=== PATIENT | female | born 1955 | race Caucasian/White ===

== ENCOUNTER 2016-12-04 14:29 | Emergency (ER) | payer SELFPAY ==
[~2016-12-04] VITALS: Ht 154.9 cm; Wt 51.0 kg
--- NOTE | 2016-12-04 14:33 | PD ---
HPI Chief Complaint: fall Time Seen by Provider: 14:33 Travel History International Travel<30 days: No Contact w/Intl Traveler<30days: No Traveled to known affect area: No History of Present Illness HPI 61-year-old female was a chronic alcoholic fell after she has been drinking. She hit her head and was bleeding significantly. She was brought in by EMS. Patient does not remember what happened. She says she's been falling a lot lately. She appears disheveled and intoxicated but answering questions to some extent appropriately. She was slightly tachycardic upon arrival. [facility] Past Medical History Narrative Medical List of her past medical, surgical, social and family history was reviewed from the nursing note. Anxiety: Yes Depression: Yes Diminished Hearing: No Social History Alcohol Use: Yes (HEAVY DRINKER) Tobacco Use: Yes (1/2 PPD) Substance Use: No Allergies-Medications (Allergen,Severity, Reaction): Coded Allergies: No Known Allergies (Unverified , 12/04/16) Comments No known drug allergies. Reported Meds & Prescriptions Reported Meds & Active Scripts Active No Active Prescriptions or Reported Medications Narrative Medication List of her home medications reviewed from the nursing note. Review of Systems Except as stated in HPI: all other systems reviewed are Neg Physical Exam Narrative GENERAL: Intoxicated, slurred speech SKIN: Focused skin assessment warm/dry. HEAD: Large laceration on the posterior aspect of the scalp. Seems to be some active bleeding. EYES: Pupils equal and round. No scleral icterus. No injection or drainage. ENT: No nasal bleeding or discharge. Mucous membranes pink and moist. NECK: Trachea midline. No JVD. CARDIOVASCULAR: Regular rate and rhythm. No murmur appreciated. RESPIRATORY: No accessory muscle use. Clear to auscultation. Breath sounds equal bilaterally. GASTROINTESTINAL: Abdomen soft, non-tender, nondistended. Hepatic and splenic margins not palpable. MUSCULOSKELETAL: No obvious deformities. No clubbing. No cyanosis. No edema. NEUROLOGICAL: Intoxicated, slurred speech, GCS of 15. No obvious cranial nerve deficits. Motor grossly within normal limits. Slurred speech. PSYCHIATRIC: Appropriate mood and affect; insight and judgment normal. Data Data Last Documented VS Vital Signs Date Time Temp Pulse Resp B/P (MAP) Pulse Ox O2 Delivery O2 Flow Rate FiO2 12/04/16 19:40 98.6 89 18 100/53 (69) 96 12/04/16 19:39 Room Air Orders Orders Basic Metabolic Panel (Bmp) (12/04/16 14:43) Complete Blood Count With Diff (12/04/16 14:43) Prothrombin Time / Inr (Pt) (12/04/16 14:43) Act Partial Throm Time (Ptt) (12/04/16 14:43) Type And Screen (12/04/16 14:43) Alcohol (Ethanol) (12/04/16 14:43) Chest, Single Ap (12/04/16 14:43) Ct Brain W/O Iv Contrast(Rout) (12/04/16 14:43) Iv Access Insert/Monitor (12/04/16 14:43) Ecg Monitoring (12/04/16 14:43) Oximetry (12/04/16 14:43) Oxygen Administration (12/04/16 14:43) Sodium Chlor 0.9% 1000 Ml Inj (Ns 1000 M (12/04/16 14:43) Sodium Chloride 0.9% Flush (Ns Flush) (12/04/16 14:45) Drug Screen, Random Urine (12/04/16 14:43) ^ Irrigate (12/04/16 14:43) Potassium Chloride (Kcl) (12/04/16 16:30) Labs Laboratory Tests Test 12/04/16 15:20 12/04/16 16:30 White Blood Count 8.0 TH/MM3 Red Blood Count 4.28 MIL/MM3 Hemoglobin 14.4 GM/DL Hematocrit 44.0 % Mean Corpuscular Volume 102.8 FL Mean Corpuscular Hemoglobin 33.7 PG Mean Corpuscular Hemoglobin Concent 32.8 % Red Cell Distribution Width 13.2 % Platelet Count 429 TH/MM3 Mean Platelet Volume 7.0 FL Neutrophils (%) (Auto) 72.2 % Lymphocytes (%) (Auto) 18.7 % Monocytes (%) (Auto) 4.4 % Eosinophils (%) (Auto) 4.1 % Basophils (%) (Auto) 0.6 % Neutrophils # (Auto) 5.8 TH/MM3 Lymphocytes # (Auto) 1.5 TH/MM3 Monocytes # (Auto) 0.4 TH/MM3 Eosinophils # (Auto) 0.3 TH/MM3 Basophils # (Auto) 0.0 TH/MM3 CBC Comment DIFF FINAL Differential Comment Prothrombin Time 10.1 SEC Prothromb Time International Ratio 0.9 RATIO Activated Partial Thromboplast Time 26.6 SEC Blood Urea Nitrogen 4 MG/DL Creatinine 0.95 MG/DL Random Glucose 103 MG/DL Calcium Level 8.2 MG/DL Sodium Level 140 MEQ/L Potassium Level 3.4 MEQ/L Chloride Level 108 MEQ/L Carbon Dioxide Level 24.2 MEQ/L Anion Gap 8 MEQ/L Estimat Glomerular Filtration Rate 60 ML/MIN Ethyl Alcohol Level 320 MG/DL Urine Opiates Screen NEG Urine Barbiturates Screen NEG Urine Amphetamines Screen NEG Urine Benzodiazepines Screen NEG Urine Cocaine Screen NEG Urine Cannabinoids Screen NEG MDM Medical Decision Making Medical Screen Exam Complete: Yes Emergency Medical Condition: Yes Medical Record Reviewed: Yes Differential Diagnosis Intracranial bleed, skull fracture, scalp last Narrative Course 3:43 PM CBC is back and within normal limits. Awaiting for the chemistry. CT scan is back and within normal limits. I just finished stapling her scalp laceration. Please refer to my procedure note. Patient tolerated the procedure well. Patient told me that her last tetanus shot was within 5 years. Case will be signed over to the oncoming ER physician. Procedures Procedure Narrative LACERATION LOCATION: Posterior scalp LENGTH: 5 cm NUMBER OF STITCHES/ANTIONE: 11 antione REPAIR: The area of the laceration was prepped with Betadine and sterilely draped. The laceration was infiltrated with None. The wound was copiously irrigated and explored without evidence of foreign body, tendon injury or neurovascular injury. The wound was closed using antione. This was a single layer repair. A sterile dressing was applied. The patient was advised to keep the dressing clean and dry. Patient tolerated the procedure well. EKG Prior to Arrival: No Scripts No Active Prescriptions or Reported Meds Bruno Farmer MD Dec 04, 2016 14:33
[2016-12-04 14:35] VITALS: BP 104/61; PULSE 104; RESP 20; TEMP 98.9
[2016-12-04] MEDS ORDERED: SODIUM CHLOR 0.9% 1000 ML INJ 1,000 ML IV SCH (14:43)
[2016-12-04] MEDS ORDERED: SODIUM CHLORIDE 0.9% FLUSH 10 ML FLUSH IVF PRN (14:45)
--- NOTE | 2016-12-04 15:24 | RADRPT ---
EXAM DATE/TIME: 12/04/2016 15:05 [facility] COMPARISON: No previous studies available for comparison. INDICATIONS : Trauma. Fall. ETOH. RADIATION DOSE: 59.81 CTDIvol (mGy) MEDICAL HISTORY : Alcohol abuse. SURGICAL HISTORY : None. ENCOUNTER: Initial ACUITY: 1 day PAIN SCALE: 0/10 LOCATION: cranial TECHNIQUE: Multiple contiguous axial images were obtained of the head. Using automated exposure control and adj ustment of the mA and/or kV according to patient size, radiation dose was kept as low as reasonably a chievable to obtain optimal diagnostic quality images. DICOM format image data is available electro nically for review and comparison. FINDINGS: CEREBRUM: The ventricles are normal for age. No evidence of midline shift, mass lesion, hemorrhage or acute in farction. No extra-axial fluid collections are seen. POSTERIOR FOSSA: The cerebellum and brainstem are intact. The 4th ventricle is midline. The cerebellopontine angle i s unremarkable. EXTRACRANIAL: The visualized portion of the orbits is intact. SKULL: The calvaria is intact. No evidence of skull fracture. CONCLUSION: Negative for an acute process. Tru Lima MD FACR on December 04, 2016 at 15:21 Board Certified Radiologist. This report was verified electronically.
--- NOTE | 2016-12-04 15:25 | RADRPT ---
EXAM DATE/TIME: 12/04/2016 15:02 [facility] COMPARISON: No previous studies available for comparison. INDICATIONS : Trauma. Fall. MEDICAL HISTORY : Unobtainable. SURGICAL HISTORY : Unobtainable. ENCOUNTER: Initial ACUITY: 1 day PAIN SCORE: Non-responsive. LOCATION: Bilateral chest FINDINGS: A single view of the chest demonstrates the lungs to be symmetrically aerated without evidence of mas s, infiltrate or effusion. The cardiomediastinal contours are unremarkable. Osseous structures are intact. CONCLUSION: No acute disease. Tru Lima MD FACR on December 04, 2016 at 15:23 Board Certified Radiologist. This report was verified electronically.
[2016-12-04 15:35] LABS: AUTOMATED NEUTROPHIL # 5.8 TH/MM3 (1.8-7.7); BASOPHIL % 0.6 % (0.0-2.0); EOSINOPHIL # 0.3 TH/MM3 (0-0.4); EOSINOPHIL % 4.1 % (0.0-4.0); HEMO FLAGS DIFF FINAL; LYMPH % 18.7 % (9.0-44.0); LYMPHOCYTE # 1.5 TH/MM3 (1.0-4.8); MEAN CELL VOLUME 102.8 FL (80.0-100.0); MEAN CORPUSCULAR HEMOGLOBIN 33.7 PG (27.0-34.0); MEAN CORPUSCULAR HGB CONC 32.8 % (32.0-36.0); MONO % 4.4 % (0.0-8.0); NEUT % 72.2 % (16.0-70.0); PLATELET COUNT 429 TH/MM3 (150-450); RED BLOOD COUNT 4.28 MIL/MM3 (4.00-5.30); RED CELL DISTRIBUTION WIDTH 13.2 % (11.6-17.2)
[2016-12-04 15:47] LABS: POTASSIUM 3.4 MEQ/L (3.5-5.1)
[2016-12-04 15:50] LABS: BICARBONATE 24.2 MEQ/L (21.0-32.0)
[2016-12-04 16:05] VITALS: BP 104/61; PULSE 104; RESP 18; O2SAT 98
[2016-12-04 16:11] LABS: APTT (PATIENT) 26.6 SEC (24.3-30.1); INTERNATIONAL NORMALIZED RATIO 0.9 RATIO; PROTHROMBIN TIME - PATIENT 10.1 SEC (9.8-11.6)
[2016-12-04] MEDS ORDERED: POTASSIUM CHLORIDE 20 MEQ CONTROLLED RELEASE TAB PO ONE (16:30)
[2016-12-04 17:10] VITALS: BP 107/62; PULSE 94; RESP 17; O2SAT 97
--- NOTE | 2016-12-04 19:33 | PD ---
Physical Exam Date Seen by Provider: Dec 04, 2016 Time Seen by Provider: 19:31 Narrative 61-year-old female had a fall and sustained a scalp laceration. Blood alcohol was 320. CT scan of the head is negative. Patient has been observed and has been stable. She will be released Data Data Last Documented VS Vital Signs Date Time Temp Pulse Resp B/P (MAP) Pulse Ox O2 Delivery O2 Flow Rate FiO2 12/04/16 17:10 Room Air 12/04/16 17:10 94 17 107/62 (77) 97 12/04/16 14:35 98.9 Orders Orders Basic Metabolic Panel (Bmp) (12/04/16 14:43) Complete Blood Count With Diff (12/04/16 14:43) Prothrombin Time / Inr (Pt) (12/04/16 14:43) Act Partial Throm Time (Ptt) (12/04/16 14:43) Type And Screen (12/04/16 14:43) Alcohol (Ethanol) (12/04/16 14:43) Chest, Single Ap (12/04/16 14:43) Ct Brain W/O Iv Contrast(Rout) (12/04/16 14:43) Iv Access Insert/Monitor (12/04/16 14:43) Ecg Monitoring (12/04/16 14:43) Oximetry (12/04/16 14:43) Oxygen Administration (12/04/16 14:43) Sodium Chlor 0.9% 1000 Ml Inj (Ns 1000 M (12/04/16 14:43) Sodium Chloride 0.9% Flush (Ns Flush) (12/04/16 14:45) Drug Screen, Random Urine (12/04/16 14:43) ^ Irrigate (12/04/16 14:43) Potassium Chloride (Kcl) (12/04/16 16:30) Labs Laboratory Tests Test 12/04/16 15:20 12/04/16 16:30 White Blood Count 8.0 TH/MM3 Red Blood Count 4.28 MIL/MM3 Hemoglobin 14.4 GM/DL Hematocrit 44.0 % Mean Corpuscular Volume 102.8 FL Mean Corpuscular Hemoglobin 33.7 PG Mean Corpuscular Hemoglobin Concent 32.8 % Red Cell Distribution Width 13.2 % Platelet Count 429 TH/MM3 Mean Platelet Volume 7.0 FL Neutrophils (%) (Auto) 72.2 % Lymphocytes (%) (Auto) 18.7 % Monocytes (%) (Auto) 4.4 % Eosinophils (%) (Auto) 4.1 % Basophils (%) (Auto) 0.6 % Neutrophils # (Auto) 5.8 TH/MM3 Lymphocytes # (Auto) 1.5 TH/MM3 Monocytes # (Auto) 0.4 TH/MM3 Eosinophils # (Auto) 0.3 TH/MM3 Basophils # (Auto) 0.0 TH/MM3 CBC Comment DIFF FINAL Differential Comment Prothrombin Time 10.1 SEC Prothromb Time International Ratio 0.9 RATIO Activated Partial Thromboplast Time 26.6 SEC Blood Urea Nitrogen 4 MG/DL Creatinine 0.95 MG/DL Random Glucose 103 MG/DL Calcium Level 8.2 MG/DL Sodium Level 140 MEQ/L Potassium Level 3.4 MEQ/L Chloride Level 108 MEQ/L Carbon Dioxide Level 24.2 MEQ/L Anion Gap 8 MEQ/L Estimat Glomerular Filtration Rate 60 ML/MIN Ethyl Alcohol Level 320 MG/DL Urine Opiates Screen NEG Urine Barbiturates Screen NEG Urine Amphetamines Screen NEG Urine Benzodiazepines Screen NEG Urine Cocaine Screen NEG Urine Cannabinoids Screen NEG MDM Medical Record Reviewed: Yes Supervised Visit with AYUSH: No Differential Diagnosis Differential includes laceration scalp, skull fracture, subdural, alcohol intoxication Narrative Course CT is negative. Blood alcohol was 320. She has been observed and is stable for discharge laceration has been stapled Diagnosis Primary Impression: Laceration of scalp Patient Instructions: General Instructions Departure Forms: Tests/Procedures Scripts No Active Prescriptions or Reported Meds Disposition: 01 DISCHARGE HOME Condition: Stable Andrews Duckworth MD Dec 04, 2016 19:33
[2016-12-04 19:40] VITALS: BP 100/53; TEMP 98.6
== END 2016-12-04 19:43 | disposition home or self-care (01) ==
LOC: PHED 14:29
DX: S01.01XA Laceration without foreign body of scalp, initial encounter (principal); F10.120 Alcohol abuse with intoxication, uncomplicated; Y90.8 Blood alcohol level of 240 mg/100 ml or more; F17.210 Nicotine dependence, cigarettes, uncomplicated; W19.XXXA Unspecified fall, initial encounter
CPT/HCPCS: 70450; 71010; 80048; 80307; 85025; 85610; 85730; 86850; 86900; 86901; 96360; 99285; J7030

== ENCOUNTER 2016-12-22 15:44 | Emergency (ER) | payer SELFPAY ==
[~2016-12-22] VITALS: Ht 165.1 cm; Wt 51.0 kg
[2016-12-22 16:01] VITALS: BP 107/66; PULSE 93; RESP 16; TEMP 97.8; O2SAT 97
[2016-12-22 16:15] VITALS: O2SAT 98
[2016-12-22] MEDS ORDERED: LORazepam 2 MG/ML VIAL IV PUSH ONE (16:15)
--- NOTE | 2016-12-22 16:16 | PD ---
HPI Chief Complaint: Anxiety Time Seen by Provider: 16:09 Travel History International Travel<30 days: No Contact w/Intl Traveler<30days: No Traveled to known affect area: No History of Present Illness HPI patient c/o palpitations, onset and ongoing steady for over 12 hours per patient , no alleviating factors but aggravated by stress. pt has had similar episodes in past and has been told is from anxiety. no cp/fever/n/v/d/ patient states no pcp. all: nkda....pshx: denied and pmhx: h/o anxiety (used to be on paxil) PFSH Past Medical History Anxiety: Yes Depression: Yes Diminished Hearing: No Neurologic: Yes (BELLS PALSY) Social History Alcohol Use: Yes (HEAVY DRINKER) Tobacco Use: Yes (1/2 PPD) Substance Use: No Allergies-Medications (Allergen,Severity, Reaction): Coded Allergies: No Known Allergies (Unverified , 12/22/16) Reported Meds & Prescriptions Reported Meds & Active Scripts Active No Active Prescriptions or Reported Medications Review of Systems Except as stated in HPI: all other systems reviewed are Neg Cardiovascular: Positive: Palpitations Physical Exam Narrative GENERAL: SKIN: Warm and dry. HEAD: Atraumatic. Normocephalic. EYES: Pupils equal and round. No scleral icterus. No injection or drainage. ENT: No nasal bleeding or discharge. Mucous membranes pink and moist. NECK: Trachea midline. No JVD. CARDIOVASCULAR: Regular rate and rhythm. RESPIRATORY: No accessory muscle use. Clear to auscultation. Breath sounds equal bilaterally. GASTROINTESTINAL: Abdomen soft, non-tender, nondistended. Hepatic and splenic margins not palpable. MUSCULOSKELETAL: Extremities without clubbing, cyanosis, or edema. No obvious deformities. NEUROLOGICAL: Awake and alert. No obvious cranial nerve deficits. Motor grossly within normal limits. Five out of 5 muscle strength in the arms and legs. Normal speech. PSYCHIATRIC: Appropriate mood and affect; insight and judgment normal. though anxious in appearance Data Data Last Documented VS Vital Signs Date Time Temp Pulse Resp B/P (MAP) Pulse Ox O2 Delivery O2 Flow Rate FiO2 12/22/16 17:38 93 16 101/76 (84) 98 Room Air 12/22/16 16:01 97.8 Orders Orders Electrocardiogram (12/22/16 16:09) Complete Blood Count With Diff (12/22/16 16:09) Comprehensive Metabolic Panel (12/22/16 16:09) Ckmb (Isoenzyme) Profile (12/22/16 16:09) Troponin I (12/22/16 16:09) B-Type Natriuretic Peptide (12/22/16 16:09) Prothrombin Time / Inr (Pt) (12/22/16 16:09) Act Partial Throm Time (Ptt) (12/22/16 16:09) Lipase (12/22/16 16:09) D-Dimer (12/22/16 16:09) Thyroid Stimulating Hormone (12/22/16 16:09) Chest, Single Ap (12/22/16 16:09) Iv Access Insert/Monitor (12/22/16 16:09) Ecg Monitoring (12/22/16 16:09) Oximetry (12/22/16 16:09) Drug Screen, Random Urine (12/22/16 16:09) Alcohol (Ethanol) (12/22/16 16:09) Salicylates (Aspirin) (12/22/16 16:09) Tylenol (Acetaminophen) (12/22/16 16:09) Lorazepam Inj (Ativan Inj) (12/22/16 16:15) CKMB (12/22/16 16:40) CKMB% (12/22/16 16:40) Ct Pulmonary Angiogram (12/22/16 17:24) Iohexol 350 Inj (Omnipaque 350 Inj) (12/22/16 17:59) Labs Laboratory Tests Test 12/22/16 16:40 White Blood Count 8.8 TH/MM3 Red Blood Count 4.39 MIL/MM3 Hemoglobin 15.2 GM/DL Hematocrit 45.0 % Mean Corpuscular Volume 102.7 FL Mean Corpuscular Hemoglobin 34.7 PG Mean Corpuscular Hemoglobin Concent 33.8 % Red Cell Distribution Width 13.6 % Platelet Count 491 TH/MM3 Mean Platelet Volume 6.9 FL Neutrophils (%) (Auto) 81.8 % Lymphocytes (%) (Auto) 11.0 % Monocytes (%) (Auto) 4.6 % Eosinophils (%) (Auto) 0.4 % Basophils (%) (Auto) 2.2 % Neutrophils # (Auto) 7.2 TH/MM3 Lymphocytes # (Auto) 1.0 TH/MM3 Monocytes # (Auto) 0.4 TH/MM3 Eosinophils # (Auto) 0.0 TH/MM3 Basophils # (Auto) 0.2 TH/MM3 CBC Comment DIFF FINAL Differential Comment Prothrombin Time 10.0 SEC Prothromb Time International Ratio 0.9 RATIO Activated Partial Thromboplast Time 27.0 SEC D-Dimer Quantitative (PE/DVT) 0.81 MG/L FEU Blood Urea Nitrogen 7 MG/DL Creatinine 0.65 MG/DL Random Glucose 93 MG/DL Total Protein 7.3 GM/DL Albumin 3.5 GM/DL Calcium Level 8.5 MG/DL Alkaline Phosphatase 91 U/L Aspartate Amino Transf (AST/SGOT) 85 U/L Alanine Aminotransferase (ALT/SGPT) 50 U/L Total Bilirubin 0.4 MG/DL Sodium Level 135 MEQ/L Potassium Level 4.8 MEQ/L Chloride Level 103 MEQ/L Carbon Dioxide Level 20.6 MEQ/L Anion Gap 11 MEQ/L Estimat Glomerular Filtration Rate 93 ML/MIN Total Creatine Kinase 178 U/L Creatine Kinase MB 2.4 NG/ML Troponin I LESS THAN 0.02 NG/ML B-Type Natriuretic Peptide 33 PG/ML Lipase 111 U/L Thyroid Stimulating Hormone 3rd Gen 0.766 uIU/ML Salicylates Level 6.0 MG/DL Urine Opiates Screen NEG Urine Barbiturates Screen NEG Urine Amphetamines Screen NEG Urine Benzodiazepines Screen NEG Urine Cocaine Screen NEG Urine Cannabinoids Screen NEG Ethyl Alcohol Level 81 MG/DL [facility] Medical Decision Making Medical Screen Exam Complete: Yes Emergency Medical Condition: Yes Medical Record Reviewed: Yes Interpretation(s) nsr 93, j point elevation, no stemi pattern, Differential Diagnosis pna v ptx v arrhythmia v anemia v dehydration Narrative Course patient was found not to be anemic/dehydrated or any major electrolyte abnl..also no e/o stemi, and cxr neg for pna/ptx. however ddimer was mildly elevated so ordered ct chest to r/o pe, currently awaiting results. during her observation period in er no dysrhythmia noted, and ativan was greatly helpful....patient made aware of ct findings (neg for pe, but e/o emphysema as well as a pulmonary nodule to follow up) Diagnosis Primary Impression: palpitations Additional Impression: incidental emphysema and pulmonary nodule Referrals: Sancho Solomon MD for further testing of your palpitations (echo, holter etc). [facility] for further followup of your pulmonary nodule, on cat scan. Patient Instructions: General Instructions, Heart Palpitations (ED) Additional Instructions: In the meantime please avoid stimulants such as caffeine, energy drinks, any type of "energy boosters" as they can and will worsen your sensation of palpitations. Scripts Albuterol 18 GM Inh (Ventolin Hfa 18 GM Inh) 90 Mcg/Act Aer 2 PUFF INH Q4-6H Y for SHORTNESS OF BREATH, #1 INHALER 0 Refills Prov: David May MD 12/22/16 Methylprednisolone Dosepak (Medrol Dosepak) 4 Mg Dspk 4 MG PO DIRECTED, #1 DSPK 0 Refills Per Pharmacist direction Prov: David May MD 12/22/16 Disposition: 01 DISCHARGE HOME Condition: Stable David May MD Dec 22, 2016 16:16
--- NOTE | 2016-12-22 16:39 | RADRPT ---
EXAM DATE/TIME: 12/22/2016 16:26 [facility] COMPARISON: CHEST SINGLE AP, December 04, 2016, 15:02. INDICATIONS : Palpitations MEDICAL HISTORY : None. SURGICAL HISTORY : None. ENCOUNTER: Initial ACUITY: 1 day PAIN SCORE: 0/10 LOCATION: Bilateral chest FINDINGS: A single view of the chest demonstrates the lungs to be symmetrically aerated without evidence of mas s, infiltrate or effusion. The cardiomediastinal contours are unremarkable. Osseous structures are intact. CONCLUSION: 1. No acute cardiopulmonary disease. John Bravo MD on December 22, 2016 at 16:37 Board Certified Radiologist. This report was verified electronically.
[2016-12-22 16:58] LABS: AUTOMATED NEUTROPHIL # 7.2 TH/MM3 (1.8-7.7); BASOPHIL # 0.2 TH/MM3 (0-0.2); BASOPHIL % 2.2 % (0.0-2.0); EOSINOPHIL % 0.4 % (0.0-4.0); HEMO FLAGS DIFF FINAL; MEAN CELL VOLUME 102.7 FL (80.0-100.0); MEAN CORPUSCULAR HEMOGLOBIN 34.7 PG (27.0-34.0); MEAN CORPUSCULAR HGB CONC 33.8 % (32.0-36.0); MONO % 4.6 % (0.0-8.0); NEUT % 81.8 % (16.0-70.0); PLATELET COUNT 491 TH/MM3 (150-450); RED BLOOD COUNT 4.39 MIL/MM3 (4.00-5.30); RED CELL DISTRIBUTION WIDTH 13.6 % (11.6-17.2); WHITE BLOOD COUNT 8.8 TH/MM3 (4.0-11.0)
[2016-12-22 17:06] LABS: CHLORIDE 103 MEQ/L (98-107); POTASSIUM 4.8 MEQ/L (3.5-5.1); SODIUM (NA) 135 MEQ/L (136-145)
[2016-12-22 17:10] LABS: ANION GAP 11 MEQ/L (5-15); BICARBONATE 20.6 MEQ/L (21.0-32.0); BLOOD UREA NITROGEN 7 MG/DL (7-18)
[2016-12-22 17:13] LABS: ALT (GPT) 50 U/L (10-53); AST (GOT) 85 U/L (15-37); GLOMERULAR FILTRATION RATE 93 ML/MIN (>89)
[2016-12-22 17:14] LABS: INTERNATIONAL NORMALIZED RATIO 0.9 RATIO; TOTAL BILIRUBIN ADULT 0.4 MG/DL (0.2-1.0)
[2016-12-22 17:15] LABS: ALKALINE PHOSPHATASE 91 U/L (45-117); CREATINE KINASE 178 U/L (26-192)
[2016-12-22 17:17] LABS: ALCOHOL 81 MG/DL (0-5)
[2016-12-22 17:29] LABS: CKMB 2.4 NG/ML (0.5-3.6)
[2016-12-22 17:38] VITALS: BP 101/76; PULSE 93; RESP 16; O2SAT 98
[2016-12-22] MEDS ORDERED: IOHEXOL 350 MG/ML 10 ML VIAL (for RAD DIAG) IVCONTRAST ONE (17:59)
--- NOTE | 2016-12-22 18:13 | RADRPT ---
EXAM DATE/TIME: 12/22/2016 17:53 [facility] COMPARISON: No previous studies available for comparison. INDICATIONS : Palpitations. Anxiety. Evaluate for embolism. IV CONTRAST: 65 cc Omnipaque 350 (iohexol) IV RADIATION DOSE: 6.14 CTDIvol (mGy) MEDICAL HISTORY : None SURGICAL HISTORY : None. ENCOUNTER: Initial ACUITY: 1 day PAIN SCALE: 0/10 LOCATION: chest TECHNIQUE: Volumetric scanning of the chest was performed using a pulmonary embolism protocol MIP images were re constructed. Using automated exposure control and adjustment of the mA and/or kV according to patien t size, radiation dose was kept as low as reasonably achievable to obtain optimal diagnostic quality images. DICOM format image data is available electronically for review and comparison. Follow-up recommendations for detected pulmonary nodules are based at a minimum on nodule size and pa tient risk factors according to Fleischner Society Guidelines. FINDINGS: PULMONARY ARTERIES: No filling defects are seen in the pulmonary arteries through the segmental level. LUNGS: There is mild emphysema. Mild dependent atelectasis seen of both lung bases. There is a 6 mm nodule i n the right middle lobe. PLEURAE: There is no pleural thickening or pleural effusion. MEDIASTINUM: There is good visualization of the great vessels of the middle mediastinum. No evidence of mediastin al or hilar adenopathy/mass. Heart size normal. There is left anterior descending coronary artery siri cification, for example series 2 image 72. MUSCULOSKELETAL: Within normal limits for patient age. MISCELLANEOUS: Liver appears fatty infiltrated. No CONCLUSION: 1. No pulmonary embolus. 2. Mild bibasilar atelectasis. 3. 6 mm right middle lobe pulmonary nodule. Followup noncontrast chest CT recommended in 6 months. 4. Emphysema and coronary artery calcification. 5. Fatty liver. Nghia Saez MD on December 22, 2016 at 18:09 Board Certified Radiologist. This report was verified electronically.
[2016-12-22] MEDS ORDERED: MEDR4PAK PO (18:23)
[2016-12-22] MEDS ORDERED: VENTAER INH (18:23)
[2016-12-22 18:24] LABS: ACETAMINOPHEN LESS THAN 2.0 MCG/ML (10.0-30.0)
--- NOTE | 2016-12-22 19:13 | EKG ---
Date Performed: 12/22/2016 Time Performed: 16:20:59 PTAGE: 61 years EKG: Sinus rhythm NORMAL ECG NO PREVIOUS TRACING DOCTOR: Adonay Jack Interpretating Date/Time 12/22/2016 19:11:39
== END 2016-12-22 18:55 | disposition home or self-care (01) ==
LOC: PHEFT 15:44
DX: R00.2 Palpitations (principal); J43.9 Emphysema, unspecified; R91.1 Solitary pulmonary nodule; F17.210 Nicotine dependence, cigarettes, uncomplicated
CPT/HCPCS: 71010; 71275; 80053; 80307; 82550; 82552; 83690; 83880; 84443; 84484; 85025; 85379; 85610; 85730; 93005; 96374; 99285; J2060; Q9967